=== PATIENT | male | born 1960 | race Caucasian/White ===

== ENCOUNTER 2018-03-05 07:28 | Emergency (ER) | payer MEDICARE ==
[~2018-03-05] VITALS: Ht 182.8 cm; Wt 77.1 kg
[~2018-03-05 07:28] MED LIST: ASPIRIN81 M1 PO; AVELOX400 MG PO; BENADRYL ALLERG25 M5 PO; BENADRYL25 MG PO; CLARITIN10 MG PO; KENALOG0.1% TP; MEDROL DOSEPAK4 MG PO; PREDNICOT20 MG PO; VICODIN 5/500 505 MG PO; ZITHROMAX Z PA250 MG PO
[2018-03-05 07:34] VITALS: BP 159/100
[2018-03-05] MEDS ORDERED: TYLENOL325 M1 PO (09:27)
[2018-03-05] MEDS ORDERED: NAPROSYN500 MG PO (09:27)
== END 2018-03-05 09:15 | disposition home or self-care (01) ==
LOC: ED 07:28
DX: S62.626A Displaced fracture of middle phalanx of right little finger, initial encounter for closed fracture (principal); F17.200 Nicotine dependence, unspecified, uncomplicated; Z98.890 Other specified postprocedural states; Z79.82 Long term (current) use of aspirin; Z91.030 Bee allergy status; Z88.0 Allergy status to penicillin; W01.0XXA Fall on same level from slipping, tripping and stumbling without subsequent striking against object, initial encounter; Y93.89 Activity, other specified; Y92.89 Other specified places as the place of occurrence of the external cause; Y99.9 Unspecified external cause status

== ENCOUNTER 2018-05-19 22:04 | Inpatient (IN) | payer MEDICARE ==
[~2018-05-19] VITALS: Ht 182.9 cm; Wt 70.1 kg
--- NOTE | ~2018-05-19 | PR ---
[place], [place] PROGRESS NOTE NAME: ANATOLIY LUCAS JR UNIT #: [id number] ROOM: 402 DOCTOR: DINAH TODD MD BIRTHDATE: [birth year] DOS: 05/21/2018 CARDIOLOGY PROGRESS NOTE SUBJECTIVE: The patient was seen at his bedside today for followup of his brief episode of atrial fibrillation. He is a 57-year-old man who has no previous history of high blood pressure, diabetes, heart disease, vascular disease, or stroke. He had an episode of dysphagia at home with coughing, choking, dyspnea, etc. There is a question of possible aspiration. In the Emergency Room, he was noted to be tachycardic and review of strips available show that he had an irregular tachycardia suggesting a brief run of atrial fibrillation. Since he has been hospitalized, his rhythm has been perfectly regular and sinus. The patient is scheduled to have an endoscopy today to evaluate the cause of his dysphagia. He was complaining today because he is being kept n.p.o. He had no further cardiac complaints. PHYSICAL EXAMINATION: VITAL SIGNS: His pulse is 70 and regular, blood pressure is 128/78. He is afebrile. NECK: Supple. He has no jugular distention. Carotids are full. LUNGS: Respirations are unlabored. Chest is clear. HEART: Has a regular rhythm with a soft S4 gallop, but no S3. The PMI is not displaced. ABDOMEN: Benign. EXTREMITIES: Showed no edema. Peripheral pulses are easily palpated in the feet. I reviewed his monitor strips which showed sinus rhythm. IMPRESSION: 1. Episode of dysphagia with possible aspiration, accompanied by nausea, vomiting, dyspnea, etc. 2. Brief episode of atrial fibrillation while patient was experiencing nausea, vomiting, dyspnea, etc. 3. CHADS-VASc score equals zero consistent with low risk for stroke. PLAN: We will obtain an echocardiogram and continue low dose beta lakia along with aspirin therapy. No other cardiac workup is contemplated unless his echocardiogram is unusual. I thank the hospitalist physicians for asking our advice regarding his care. [place], [place] PROGRESS NOTE NAME: ANATOLIY LUCAS JR UNIT #: [id number] ROOM: 402 DOCTOR: DINAH TODD MD BIRTHDATE: [birth year] DINAH TODD MD CM:PNTRANS 8 [id number] DINAH TODD MD 05/21/18 1008 interface
--- NOTE | ~2018-05-19 | EKG ---
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
--- NOTE | ~2018-05-19 | CON ---
[place], [place] REPORT OF CONSULTATION NAME: ANATOLIY LUCAS JR UNIT #: [id number] ROOM: 402 DOCTOR: BENI KING,PADMA BIRTHDATE: [birth year] DOS: 05/21/2018 GASTROENDOSCOPIC REPORT HISTORY OF PRESENT ILLNESS: This is a 57-year-old patient who presented with chief complaint of choking on food and there has been a concern about esophageal pathology. I have been consulted in this regard. The patient also has history of allergies that has been noticed thus to seasonal allergy. He had a panel of blood work done. His lactic acid was normal. CBC: White blood cell was 9, H and H of 13 and 41. Chest x-ray was pulmonary hyperinflation, INR was 1.0. Comprehensive metabolic panel, GFR greater than 60. Electrolytes balanced, magnesium 2.8. Liver function test normal except alkaline phosphatase as 153, lipase normal. Urine culture was within normal limits. Basic metabolic panel remained normal. PAST MEDICAL HISTORY: Associated with dysphagia, supraventricular tachycardia, nicotine dependency. Past medical history also associated with COPD, pulmonary embolism. PAST SURGICAL HISTORY: Cholecystectomy. SOCIAL HISTORY: Smoker. Social alcohol consumer. FAMILY HISTORY: Diabetes, hypertension. ALLERGIES: PENICILLIN AND BEE STING. MEDICATIONS: List has been reviewed. The patient has been on naproxen b.i.d. as well as aspirin. REVIEW OF SYSTEMS: HEENT: Denies double vision, blurred vision. RESPIRATORY: Denies acute shortness of breath; however, chronically short of breath. CARDIOVASCULAR: Denies chest pain. DIGESTIVE SYSTEM: Dysphagia. PHYSICAL EXAMINATION: VITAL SIGNS: Stable. HEENT: Within normal limit. NECK: Supple. No thyromegaly, no cervical lymphadenopathy. HEART: Normal sinus rhythm, no gallop, no murmur. ABDOMEN: Soft. No hepato-organomegaly. Bowel sounds within normal limit. EXTREMITIES: No cyanosis, no pedal edema. NEUROLOGIC: Alert, oriented to time, place, person. IMPRESSION: History of supraventricular tachycardia, COPD, nicotine dependency, dysphagia. PLAN AND DISCUSSION: We are going to organize an EGD in search of etiology for [place], [place] REPORT OF CONSULTATION NAME: ANATOLIY LUCAS JR UNIT #: [id number] ROOM: 402 DOCTOR: BENI KING,PADMA BIRTHDATE: [birth year] dysphagia. PADMA BAZAN MD CM:CONSTR:REPORT OF CONSULTATION 1816 05/22/18 0105 interface
--- NOTE | ~2018-05-19 | EKG ---
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
--- NOTE | ~2018-05-19 | O ---
[place], [place] OPERATIVE NOTE NAME: [facility]AS JR [id number] UNIT #: [id number] ROOM: 402 DOCTOR: PADMA BAZAN MD BIRTHDATE: [birth year] DOS: 05/21/2018 GASTROENDOSCOPIC REPORT HISTORY OF PRESENT ILLNESS: A 57-year-old patient who presented with a chief complaint of dysphagia, choking on the food and I have been asked for assessment of the patient in this regard. The patient also has supraventricular tachycardia history. The patient with nicotine dependency, history of COPD, history of naproxen use. Today's procedure part of investigation is panendoscopy plus biopsy. PREMEDICATION: Propofol. SCOPE: Olympus forward-viewing gastroscope Q10 video. REPORT: After putting the patient in left lateral position and application of lubricant to the scope, the scope was introduced. Thereafter, under direct visualization, advanced through the length of esophagus without difficulty. Gastric pouch was entered. A small hiatal hernia about 2 cm was noticed. Gastritis noticed. Antral biopsy obtained. Duodenal patency assured. There was no ulceration, no lesion in the duodenum. Air was suctioned out. GI reflexion of the scope reveals cardia to be benign. The patient was extubated, tolerated the procedure well. IMPRESSION: Gastritis, which could be secondary to nonsteroidal anti-inflammatory periodically is taking as well as smoking, hiatal hernia, dysphagia that he felt could be related to the above. There is no obstruction. At the present time, the patient is going to be started on soft diet and tomorrow regular diet and followed up as outpatient. Omeprazole 20 mg daily, would suffice management of the dyspepsia. PADMA BAZAN MD CM:OPRECORD:OPERATIVE NOTE [id number] PADMA BAZAN MD 05/21/18 184 interface
[~2018-05-19 22:04] MED LIST changes: +NAPROSYN500 MG PO; +TYLENOL325 M1 PO
[2018-05-19 22:12] VITALS: BP 142/88
[2018-05-19 22:57] VITALS: BP 140/68
[2018-05-19 23:06] LABS: BASO # 0.1 10*3/uL (0.0-0.1); EOS # 0.2 10*3/uL (0.0-0.4); EOS % 2.4 % (1.0-4.0); HEMATOCRIT 41.4 % (42.0-52.0); HEMOGLOBIN 13.6 g/dl (14.0-18.0); LYMPH # 1.9 10*3/uL (1.3-4.4); LYMPH % 20.7 % (27.0-41.0); MEAN CELL VOLUME 86.4 fl (80.0-94.0); MEAN CORPUSCULAR HGB 28.4 pg (27.0-31.0); MEAN CORPUSCULAR HGB CONC 32.9 g/dl (33.0-37.0); MEAN PLATELET VOLUME 10.1 fl (9.6-12.3); MONO % 11.5 % (3.0-9.0); NEUT # 5.8 10*3/uL (2.3-7.9); NEUT % 64.2 % (47.0-73.0); PLATELET COUNT AUTOMATED 294 10*3/uL (130-400); RED BLOOD COUNT 4.79 10*6/uL (4.50-5.90); RED CELL DISTRI WIDTH 13.9 % (0-14.5); WHITE BLOOD COUNT 9.1 10*3/uL (4.8-10.8)
[2018-05-19 23:23] LABS: ALBUMIN 2.9 gm/dl (3.1-4.5); ALKALINE PHOSPHATASE 153 U/L (45-117); BUN 18 mg/dl (7-24); CHLORIDE 110 mmol/L (98-107); CREATININE 0.92 mg/dL (0.70-1.30); LIPASE 102 U/L (73-393); POTASSIUM 3.6 mmol/L (3.5-5.1); SGOT/AST 12 IU/L (3-35); SGPT/ALT 18 U/L (12-78); SODIUM 141 mmol/L (136-145); TOTAL PROTEIN 5.9 gm/dL (6.4-8.2); TROPONIN I < 0.015 ng/ml (<0.045)
[2018-05-19 23:28] VITALS: BP 136/74
[2018-05-19 23:38] LABS: BILIRUBIN NEGATIVE (NEGATIVE); BLOOD 2+ (NEGATIVE); CLARITY CLEAR (CLEAR); COLOR YELLOW (YELLOW); GLUCOSE NEGATIVE (NEGATIVE); KETONE NEGATIVE (NEGATIVE); LEUKO ESTERASE NEGATIVE (NEGATIVE); NITRITE NEGATIVE (NEGATIVE); UROBILINOGEN 0.2 E.U./dl (0.2-1.0)
[2018-05-20] VITALS (8 sets, daily range): BP systolic 122–149; BP diastolic 72–92
[2018-05-20 05:53] LABS: BASO # 0.1 10*3/uL (0.0-0.1); BASO % 1.3 % (0.0-1.0); EOS # 0.2 10*3/uL (0.0-0.4); EOS % 2.4 % (1.0-4.0); HEMATOCRIT 40.3 % (42.0-52.0); HEMOGLOBIN 13.2 g/dl (14.0-18.0); LYMPH # 2.3 10*3/uL (1.3-4.4); MEAN CELL VOLUME 86.5 fl (80.0-94.0); MEAN CORPUSCULAR HGB 28.3 pg (27.0-31.0); MEAN CORPUSCULAR HGB CONC 32.8 g/dl (33.0-37.0); MEAN PLATELET VOLUME 10.6 fl (9.6-12.3); MONO # 0.8 10*3/uL (0.1-1.0); MONO % 11.2 % (3.0-9.0); NEUT # 4.1 10*3/uL (2.3-7.9); NEUT % 54.8 % (47.0-73.0); PLATELET COUNT AUTOMATED 276 10*3/uL (130-400); RED BLOOD COUNT 4.66 10*6/uL (4.50-5.90); RED CELL DISTRI WIDTH 14.1 % (0-14.5); WHITE BLOOD COUNT 7.5 10*3/uL (4.8-10.8)
[2018-05-20 05:59] LABS: BUN 15 mg/dl (7-24); CHLORIDE 111 mmol/L (98-107); CHOLESTEROL 179 mg/dL (<200); CREATININE 0.84 mg/dL (0.70-1.30); FREE T4 1.07 ng/dl (0.76-1.46); HDL CHOLESTEROL 42 mg/dl (40-60); LDL CHOLESTEROL 125 mg/dL (9-159); PHOSPHOROUS 3.1 mg/dL (2.5-4.9); SODIUM 143 mmol/L (136-145); TRIGLYCERIDES 62 mg/dl (<150); VLDL CHOLESTEROL 12 mg/dL (6-40)
[2018-05-20 06:05] LABS: THYROID STIM HORMONE (HS) 0.859 uIU/ml (0.358-4.75)
[2018-05-21] VITALS (9 sets, daily range): BP systolic 101–157; BP diastolic 59–91
[2018-05-21 06:53] LABS: BASO # 0.1 10*3/uL (0.0-0.1); BASO % 1.3 % (0.0-1.0); EOS # 0.3 10*3/uL (0.0-0.4); EOS % 3.4 % (1.0-4.0); HEMATOCRIT 43.3 % (42.0-52.0); HEMOGLOBIN 14.2 g/dl (14.0-18.0); LYMPH # 2.1 10*3/uL (1.3-4.4); MEAN CELL VOLUME 85.6 fl (80.0-94.0); MEAN CORPUSCULAR HGB 28.1 pg (27.0-31.0); MEAN CORPUSCULAR HGB CONC 32.8 g/dl (33.0-37.0); MEAN PLATELET VOLUME 10.7 fl (9.6-12.3); MONO % 11.8 % (3.0-9.0); NEUT # 4.9 10*3/uL (2.3-7.9); NEUT % 58.4 % (47.0-73.0); PLATELET COUNT AUTOMATED 311 10*3/uL (130-400); RED BLOOD COUNT 5.06 10*6/uL (4.50-5.90); RED CELL DISTRI WIDTH 14.2 % (0-14.5); WHITE BLOOD COUNT 8.4 10*3/uL (4.8-10.8)
[2018-05-21 07:06] LABS: BUN 10 mg/dl (7-24); CHLORIDE 106 mmol/L (98-107); CREATININE 0.82 mg/dL (0.70-1.30); POTASSIUM 4.2 mmol/L (3.5-5.1); SODIUM 140 mmol/L (136-145)
[2018-05-22] VITALS: BP 135/73
[2018-05-22 08:00] VITALS: BP 124/80
[2018-05-22] MEDS ORDERED: METOPROLOL SUCC25 M2 PO (09:04)
[2018-05-22] MEDS ORDERED: OMEPRAZOLE20 M2 PO (09:04)
== END 2018-05-22 09:47 | disposition home or self-care (01) | DRG 392 ==
LOC: ED 22:04 → 4E 05-20 01:25 → EDHOLD 05-20 01:25 → 4E 05-20 01:33
PROVIDERS: Emergency Medicine Emergency Medical Services; Internal Medicine
PROC: 0DB68ZX Excision of Stomach, Via Natural or Artificial Opening Endoscopic, Diagnostic (ICD-10-PCS; principal; 2018-05-21)
DX: K29.70 Gastritis, unspecified, without bleeding (principal); E44.0 Moderate protein-calorie malnutrition; I47.1 Supraventricular tachycardia; I08.1 Rheumatic disorders of both mitral and tricuspid valves; I48.0 Paroxysmal atrial fibrillation; R13.10 Dysphagia, unspecified; K44.9 Diaphragmatic hernia without obstruction or gangrene; Z68.20 Body mass index [BMI] 20.0-20.9, adult; D50.9 Iron deficiency anemia, unspecified; J44.9 Chronic obstructive pulmonary disease, unspecified; E55.9 Vitamin D deficiency, unspecified; I45.10 Unspecified right bundle-branch block; Z72.0 Tobacco use; Z71.6 Tobacco abuse counseling; Z86.718 Personal history of other venous thrombosis and embolism; Z86.711 Personal history of pulmonary embolism; Z88.0 Allergy status to penicillin; Z91.030 Bee allergy status; Z79.899 Other long term (current) drug therapy; Z79.82 Long term (current) use of aspirin; Z90.49 Acquired absence of other specified parts of digestive tract; Z80.8 Family history of malignant neoplasm of other organs or systems; Z82.49 Family history of ischemic heart disease and other diseases of the circulatory system; Z83.3 Family history of diabetes mellitus

== ENCOUNTER → 2018-06-27 | Outpatient (CLI) | payer MEDICARE ==
[~2018-06-27] MED LIST changes: +METOPROLOL SUCC25 M2 PO; +OMEPRAZOLE20 M2 PO
[2018-06-27 16:11] LABS: BASO # 0.1 10*3/uL (0.0-0.1); BASO % 0.9 % (0.0-1.0); EOS # 0.1 10*3/uL (0.0-0.4); EOS % 0.9 % (1.0-4.0); HEMATOCRIT 46.5 % (42.0-52.0); HEMOGLOBIN 15.4 g/dl (14.0-18.0); LYMPH # 2.6 10*3/uL (1.3-4.4); LYMPH % 21.6 % (27.0-41.0); MEAN CELL VOLUME 86.9 fl (80.0-94.0); MEAN CORPUSCULAR HGB 28.8 pg (27.0-31.0); MEAN CORPUSCULAR HGB CONC 33.1 g/dl (33.0-37.0); MEAN PLATELET VOLUME 9.5 fl (9.6-12.3); MONO # 1.2 10*3/uL (0.1-1.0); MONO % 9.8 % (3.0-9.0); NEUT # 7.8 10*3/uL (2.3-7.9); NEUT % 66.6 % (47.0-73.0); PLATELET COUNT AUTOMATED 319 10*3/uL (130-400); RED BLOOD COUNT 5.35 10*6/uL (4.50-5.90); RED CELL DISTRI WIDTH 14.1 % (0-14.5); WHITE BLOOD COUNT 11.8 10*3/uL (4.8-10.8)
[2018-06-27 16:25] LABS: ALBUMIN 3.8 gm/dl (3.1-4.5); ALKALINE PHOSPHATASE 150 U/L (45-117); BUN 16 mg/dl (7-24); CHLORIDE 109 mmol/L (98-107); CREATININE 0.98 mg/dL (0.70-1.30); POTASSIUM 4.6 mmol/L (3.5-5.1); SGOT/AST 29 IU/L (3-35); SGPT/ALT 28 U/L (12-78); SODIUM 140 mmol/L (136-145); TOTAL PROTEIN 7.1 gm/dL (6.4-8.2)
== END | disposition home or self-care (01) ==
LOC: US 15:52
PROVIDERS: Urology
DX: Z12.5 Encounter for screening for malignant neoplasm of prostate (principal); N28.89 Other specified disorders of kidney and ureter; K29.70 Gastritis, unspecified, without bleeding

== ENCOUNTER 2019-05-19 06:37 | Emergency (ER) | payer OTHER ==
[~2019-05-19] VITALS: Wt 66.7 kg
[2019-05-19 06:37] VITALS: BP 152/97
[2019-05-19] MEDS ORDERED: PREDNISONE20 M1 PO (06:59)
[2019-05-19] MEDS ORDERED: ATARAX,VISTARIL50 MG PO (06:59)
== END 2019-05-19 07:14 | disposition home or self-care (01) ==
LOC: ED 06:37
DX: L23.7 Allergic contact dermatitis due to plants, except food (principal); F17.200 Nicotine dependence, unspecified, uncomplicated; Z88.0 Allergy status to penicillin; Z91.030 Bee allergy status; Z79.82 Long term (current) use of aspirin

== ENCOUNTER 2020-03-28 00:19 | Emergency (ER) | payer OTHER ==
[~2020-03-28] VITALS: Ht 182.8 cm; Wt 77.1 kg
[~2020-03-28 00:19] MED LIST changes: +ATARAX,VISTARIL50 MG PO; +PREDNISONE20 M1 PO
[2020-03-28 01:52] LABS: BASO # 0.1 10*3/uL (0.0-0.1); BASO % 1.1 % (0.0-1.0); EOS # 0.4 10*3/uL (0.0-0.4); EOS % 5.5 % (1.0-4.0); HEMATOCRIT 42.3 % (42.0-52.0); LYMPH # 2.2 10*3/uL (1.3-4.4); LYMPH % 27.7 % (27.0-41.0); MEAN CORPUSCULAR HGB 28.9 pg (27.0-31.0); MEAN CORPUSCULAR HGB CONC 33.6 g/dl (33.0-37.0); MEAN PLATELET VOLUME 9.9 fl (9.6-12.3); MONO # 1.2 10*3/uL (0.1-1.0); MONO % 14.7 % (3.0-9.0); NEUT # 4.1 10*3/uL (2.3-7.9); NEUT % 50.8 % (47.0-73.0); PLATELET COUNT AUTOMATED 347 10*3/uL (130-400); RED BLOOD COUNT 4.92 10*6/uL (4.50-5.90)
[2020-03-28 02:07] LABS: ALBUMIN 3.1 gm/dl (3.1-4.5); ALKALINE PHOSPHATASE 151 U/L (45-117); BUN 15 mg/dl (7-24); CHLORIDE 106 mmol/L (98-107); CREATININE 0.87 mg/dL (0.70-1.30); SGOT/AST 19 IU/L (3-35); SGPT/ALT 19 U/L (12-78); SODIUM 139 mmol/L (136-145); TOTAL PROTEIN 6.2 gm/dL (6.4-8.2)
[2020-03-28 03:51] VITALS: BP 147/99
[2020-03-28] MEDS ORDERED: DOXYCYCLINE100 MG PO (05:28)
[2020-03-28] MEDS ORDERED: CLARITIN10 MG PO ×2 (05:28→05:40)
[2020-03-28] MEDS ORDERED: PROVENTIL HFA6.7 GM INH ×2 (05:28→05:40)
[2020-03-28] MEDS ORDERED: DOXYCYCLINE100 M3 PO (05:40)
== END 2020-03-28 05:46 | disposition home or self-care (01) ==
LOC: ED 00:19
PROVIDERS: Emergency Medicine
DX: J40 Bronchitis, not specified as acute or chronic (principal); J32.9 Chronic sinusitis, unspecified; J44.9 Chronic obstructive pulmonary disease, unspecified; F17.200 Nicotine dependence, unspecified, uncomplicated; Z88.0 Allergy status to penicillin; Z91.030 Bee allergy status; Z79.82 Long term (current) use of aspirin; Z86.718 Personal history of other venous thrombosis and embolism

== ENCOUNTER → 2020-04-08 | Outpatient (CLI) | payer OTHER ==
[~2020-04-08] MED LIST changes: +DOXYCYCLINE100 M3 PO; +DOXYCYCLINE100 MG PO; +PROVENTIL HFA6.7 GM INH
== END | disposition home or self-care (01) ==
LOC: RAD 07:59
DX: R06.02 Shortness of breath (principal)

== ENCOUNTER 2020-04-28 03:59 | Observation (INO) | payer OTHER ==
[~2020-04-28] VITALS: Ht 182.9 cm; Wt 71.3 kg
[2020-04-28] VITALS (10 sets, daily range): BP systolic 120–147; BP diastolic 79–95
[2020-04-28 04:22] LABS: HEMATOCRIT 44.6 % (42.0-52.0); MEAN CELL VOLUME 83.8 fl (80.0-94.0); MEAN CORPUSCULAR HGB 28.6 pg (27.0-31.0); MEAN CORPUSCULAR HGB CONC 34.1 g/dl (33.0-37.0); MEAN PLATELET VOLUME 9.5 fl (9.6-12.3); PLATELET COUNT AUTOMATED 386 10*3/uL (130-400); RED BLOOD COUNT 5.32 10*6/uL (4.50-5.90); RED CELL DISTRI WIDTH 13.7 % (0-14.5)
[2020-04-28 04:39] LABS: ALBUMIN 3.5 gm/dl (3.1-4.5); ALKALINE PHOSPHATASE 193 U/L (45-117); BUN 17 mg/dl (7-24); CHLORIDE 107 mmol/L (98-107); CREATININE 0.95 mg/dL (0.70-1.30); POTASSIUM 3.6 mmol/L (3.5-5.1); SGOT/AST 21 IU/L (3-35); SGPT/ALT 32 U/L (12-78); SODIUM 139 mmol/L (136-145); TOTAL PROTEIN 7.3 gm/dL (6.4-8.2)
[2020-04-28 04:46] LABS: BURR CELLS MANY; PLATELET SUFFICIENCY NORMAL (NORMAL); TOTAL CELLS COUNTED 100 #CELLS
[2020-04-28] MEDS ORDERED: LIPITOR40 MG PO (08:17)
[2020-04-28] MEDS ORDERED: VITAMIN D325 MCG PO (08:17)
[2020-04-28] MEDS ORDERED: BREO ELLIPTA 21 EACH INH (08:18)
[2020-04-29] VITALS: BP 141/76
[2020-04-29 01:42] VITALS: BP 141/84
[2020-04-29 07:01] LABS: BASO # 0.1 10*3/uL (0.0-0.1); BASO % 0.9 % (0.0-1.0); EOS # 0.2 10*3/uL (0.0-0.4); EOS % 2.4 % (1.0-4.0); HEMATOCRIT 40.4 % (42.0-52.0); LYMPH # 2.3 10*3/uL (1.3-4.4); LYMPH % 24.7 % (27.0-41.0); MEAN CELL VOLUME 86.7 fl (80.0-94.0); MEAN CORPUSCULAR HGB 28.1 pg (27.0-31.0); MEAN CORPUSCULAR HGB CONC 32.4 g/dl (33.0-37.0); MEAN PLATELET VOLUME 9.8 fl (9.6-12.3); MONO # 1.1 10*3/uL (0.1-1.0); MONO % 12.2 % (3.0-9.0); NEUT # 5.4 10*3/uL (2.3-7.9); NEUT % 59.6 % (47.0-73.0); PLATELET COUNT AUTOMATED 311 10*3/uL (130-400); RED BLOOD COUNT 4.66 10*6/uL (4.50-5.90); RED CELL DISTRI WIDTH 14.3 % (0-14.5); WHITE BLOOD COUNT 9.1 10*3/uL (4.8-10.8)
[2020-04-29 07:08] LABS: ACT PARTIAL THROMBO TIME 24.9 SECONDS (20.0-32.1); INTERNATIONAL NORM RATIO 0.9 (2.0-3.5)
[2020-04-29 07:30] LABS: ALBUMIN 2.8 gm/dl (3.1-4.5); ALKALINE PHOSPHATASE 156 U/L (45-117); BUN 14 mg/dl (7-24); CHLORIDE 111 mmol/L (98-107); CHOLESTEROL 134 mg/dL (<200); CREATININE 0.82 mg/dL (0.70-1.30); FREE T4 0.99 ng/dl (0.76-1.46); HDL CHOLESTEROL 53 mg/dl (40-60); LDL CHOLESTEROL 70 mg/dL (9-159); SGOT/AST 18 IU/L (3-35); SGPT/ALT 24 U/L (12-78); TOTAL PROTEIN 5.9 gm/dL (6.4-8.2); TRIGLYCERIDES 57 mg/dl (<150); VLDL CHOLESTEROL 11 mg/dL (6-40)
[2020-04-29 07:40] LABS: SODIUM 141 mmol/L (136-145)
[2020-04-29 07:43] LABS: POTASSIUM 4.6 mmol/L (3.5-5.1)
[2020-04-29 07:56] LABS: VITAMIN D, 25-HYDROXY 35.7 ng/mL (30-100)
[2020-04-29 08:00] VITALS: BP 140/74
[2020-04-29] MEDS ORDERED: METOPROLOL SUCC50 M1 PO (10:56)
[2020-04-29] MEDS ORDERED: ASPIRIN ADULT L81 M2 PO (10:56)
[2020-04-29 12:00] VITALS: BP 143/80
== END 2020-04-29 12:35 | disposition home or self-care (01) ==
LOC: ED 03:59 → 5E 06:35 → EDHOLD 06:35 → 5E 06:35
PROVIDERS: Emergency Medicine; Internal Medicine; ADMIT Student in an Organized Health Care Education/Training Program
DX: I48.91 Unspecified atrial fibrillation (principal); R74.8 Abnormal levels of other serum enzymes; R73.9 Hyperglycemia, unspecified; R11.2 Nausea with vomiting, unspecified; R06.02 Shortness of breath; J44.9 Chronic obstructive pulmonary disease, unspecified; E78.00 Pure hypercholesterolemia, unspecified; R13.10 Dysphagia, unspecified; D72.829 Elevated white blood cell count, unspecified; E55.9 Vitamin D deficiency, unspecified; F17.210 Nicotine dependence, cigarettes, uncomplicated

== ENCOUNTER 2020-10-31 13:39 | Emergency (ER) | payer OTHER ==
[~2020-10-31] VITALS: Ht 182.8 cm; Wt 71.2 kg
[~2020-10-31 13:39] MED LIST changes: +ASPIRIN ADULT L81 M2 PO; +BREO ELLIPTA 21 EACH INH; +LIPITOR40 MG PO; +METOPROLOL SUCC50 M1 PO; +VITAMIN D325 MCG PO
[2020-10-31 14:25] LABS: BASO # 0.1 10*3/uL (0.0-0.1); BASO % 0.7 % (0.0-1.0); EOS % 0.2 % (1.0-4.0); HEMATOCRIT 45.1 % (42.0-52.0); LYMPH # 1.2 10*3/uL (1.3-4.4); LYMPH % 11.3 % (27.0-41.0); MEAN CELL VOLUME 84.3 fl (80.0-94.0); MEAN CORPUSCULAR HGB 26.5 pg (27.0-31.0); MEAN CORPUSCULAR HGB CONC 31.5 g/dl (33.0-37.0); MEAN PLATELET VOLUME 9.7 fl (9.6-12.3); NEUT # 8.3 10*3/uL (2.3-7.9); NEUT % 78.5 % (47.0-73.0); PLATELET COUNT AUTOMATED 323 10*3/uL (130-400); RED BLOOD COUNT 5.35 10*6/uL (4.50-5.90); WHITE BLOOD COUNT 10.6 10*3/uL (4.8-10.8)
[2020-10-31 14:49] LABS: ALBUMIN 3.3 gm/dl (3.1-4.5); ALKALINE PHOSPHATASE 200 U/L (45-117); BUN 20 mg/dl (7-24); CHLORIDE 105 mmol/L (98-107); CREATININE 1.02 mg/dL (0.70-1.30); POTASSIUM 4.3 mmol/L (3.5-5.1); SGOT/AST 17 IU/L (3-35); SGPT/ALT 28 U/L (12-78); SODIUM 136 mmol/L (136-145); TOTAL PROTEIN 6.6 gm/dL (6.4-8.2); TROPONIN I 0.016 ng/ml (<0.045)
[2020-10-31 15:21] VITALS: BP 125/81
== END 2020-10-31 15:53 | disposition home or self-care (01) ==
LOC: ED 13:39
PROVIDERS: Nurse Practitioner Family
DX: F41.9 Anxiety disorder, unspecified (principal); Z91.030 Bee allergy status; Z88.0 Allergy status to penicillin; Z79.899 Other long term (current) drug therapy; Z87.891 Personal history of nicotine dependence

== ENCOUNTER → 2021-06-22 | Outpatient (CLI) | payer OTHER ==
[~2021-06-22] MED LIST changes: +VITAMIN D3250 MC1 PO
== END | disposition home or self-care (01) ==
LOC: US 00:33
PROVIDERS: ATTEND Nurse Practitioner Family
DX: L72.8 Other follicular cysts of the skin and subcutaneous tissue (principal); R60.9 Edema, unspecified; M46.1 Sacroiliitis, not elsewhere classified

== ENCOUNTER → 2022-03-22 | Outpatient (CLI) | payer OTHER | LOC: RAD 10:19 | PROVIDERS: ATTEND Internal Medicine | DX: Z01.818 Encounter for other preprocedural examination (principal); J43.9 Emphysema, unspecified; R91.8 Other nonspecific abnormal finding of lung field ==

== ENCOUNTER → 2022-04-20 | Outpatient (CLI) | payer OTHER ==
[2022-04-20 10:55] LABS: BASO # 0.1 10*3/uL (0.0-0.1); BASO % 0.8 % (0.0-1.0); EOS # 0.1 10*3/uL (0.0-0.4); EOS % 1.3 % (1.0-4.0); HEMATOCRIT 46.2 % (42.0-52.0); LYMPH # 1.6 10*3/uL (1.3-4.4); LYMPH % 18.3 % (27.0-41.0); MEAN CELL VOLUME 88.7 fl (80.0-94.0); MEAN CORPUSCULAR HGB 29.4 pg (27.0-31.0); MEAN CORPUSCULAR HGB CONC 33.1 g/dl (33.0-37.0); MEAN PLATELET VOLUME 10.2 fl (9.6-12.3); MONO # 0.9 10*3/uL (0.1-1.0); NEUT # 5.9 10*3/uL (2.3-7.9); NEUT % 69.2 % (47.0-73.0); PLATELET COUNT AUTOMATED 351 10*3/uL (130-400); RED BLOOD COUNT 5.21 10*6/uL (4.50-5.90); RED CELL DISTRI WIDTH 14.4 % (0-14.5); WHITE BLOOD COUNT 8.6 10*3/uL (4.8-10.8)
[2022-04-20 11:02] LABS: BILIRUBIN Negative (Negative); BLOOD 2+ (Negative); CLARITY Clear (Clear); COLOR Yellow (Yellow); GLUCOSE Negative (Negative); KETONE Negative (Negative); LEUKO ESTERASE Negative (Negative); NITRITE Negative (Negative); SPECIFIC GRAVITY 1.015 (1.001-1.030)
[2022-04-20 11:11] LABS: ALKALINE PHOSPHATASE 176 U/L (45-117); BUN 14 mg/dl (7-24); CHLORIDE 108 mmol/L (98-107); CREATININE 0.85 mg/dL (0.70-1.30); SGOT/AST 19 IU/L (3-35); SGPT/ALT 21 U/L (12-78); SODIUM 142 mmol/L (136-145); TOTAL PROTEIN 6.5 gm/dL (6.4-8.2)
[2022-04-20 11:31] LABS: WBC 0-2 wbc/hpf (0-5)
[2022-04-20 11:32] LABS: BACTERIA 1+; YEAST TRACE
== END | disposition home or self-care (01) ==
LOC: LAB 09:45 → CT 10:00
PROVIDERS: ATTEND Urology
DX: D40.0 Neoplasm of uncertain behavior of prostate (principal); N43.3 Hydrocele, unspecified; N20.0 Calculus of kidney; Z12.5 Encounter for screening for malignant neoplasm of prostate; K57.30 Diverticulosis of large intestine without perforation or abscess without bleeding

== ENCOUNTER 2023-01-09 09:20 | Emergency (ER) | payer OTHER ==
[~2023-01-09] VITALS: Ht 182.8 cm; Wt 68.5 kg
[2023-01-09 09:44] VITALS: BP 128/84
[2023-01-09 10:33] LABS: MEAN CELL VOLUME 85.6 fl (80.0-94.0); MEAN CORPUSCULAR HGB 28.6 pg (27.0-31.0); MEAN CORPUSCULAR HGB CONC 33.4 g/dl (33.0-37.0); MEAN PLATELET VOLUME 9.8 fl (9.6-12.3); PLATELET COUNT AUTOMATED 281 10*3/uL (130-400); RED BLOOD COUNT 5.84 10*6/uL (4.50-5.90); RED CELL DISTRI WIDTH 14.6 % (0-14.5); WHITE BLOOD COUNT 8.6 10*3/uL (4.8-10.8)
[2023-01-09 10:37] LABS: MANUAL DIFF REFLEX YES
[2023-01-09 10:47] LABS: ALKALINE PHOSPHATASE 193 U/L (46-116); BUN 16 mg/dl (9-23); CHLORIDE 107 mmol/L (98-107); CPK 210 U/L (34-171); POTASSIUM 4.9 mmol/L (3.4-5.1); SGPT/ALT 37 U/L (10-49); TOTAL PROTEIN 6.6 gm/dL (6.0-8.0)
[2023-01-09 11:07] LABS: BURR CELLS FEW; OVALOCYTES FEW; PLATELET SUFFICIENCY NORMAL (NORMAL); POLYCHROMASIA SLIGHT; TOTAL CELLS COUNTED 100 #CELLS; TOXIC GRANULATION SLIGHT; VACUOLATION OF NEUTROPHILS SLIGHT
[2023-01-09] MEDS ORDERED: CYCLOBENZAPRINE10 MG PO (11:08)
== END 2023-01-09 11:19 | disposition home or self-care (01) ==
LOC: ED 09:20
PROVIDERS: Internal Medicine
DX: R53.1 Weakness (principal); E78.00 Pure hypercholesterolemia, unspecified; Z91.030 Bee allergy status; Z88.0 Allergy status to penicillin; Z90.49 Acquired absence of other specified parts of digestive tract; Z90.89 Acquired absence of other organs; F17.200 Nicotine dependence, unspecified, uncomplicated

== ENCOUNTER → 2023-03-09 | Outpatient (CLI) | payer OTHER ==
[~2023-03-09] MED LIST changes: +CYCLOBENZAPRINE10 MG PO
[2023-03-09 11:04] LABS: BASO # 0.1 10*3/uL (0.0-0.1); BASO % 1.4 % (0.0-1.0); EOS # 0.3 10*3/uL (0.0-0.4); EOS % 3.3 % (1.0-4.0); HEMATOCRIT 48.5 % (42.0-52.0); LYMPH # 1.9 10*3/uL (1.3-4.4); MEAN CELL VOLUME 86.6 fl (80.0-94.0); MEAN CORPUSCULAR HGB 28.4 pg (27.0-31.0); MEAN CORPUSCULAR HGB CONC 32.8 g/dl (33.0-37.0); MEAN PLATELET VOLUME 10.1 fl (9.6-12.3); MONO % 11.3 % (3.0-9.0); NEUT # 5.2 10*3/uL (2.3-7.9); NEUT % 61.8 % (47.0-73.0); PLATELET COUNT AUTOMATED 337 10*3/uL (130-400); RED CELL DISTRI WIDTH 14.3 % (0-14.5); WHITE BLOOD COUNT 8.4 10*3/uL (4.8-10.8)
[2023-03-09 11:15] LABS: ACT PARTIAL THROMBO TIME 26.6 SECONDS (20.0-32.1)
[2023-03-09 11:28] LABS: ALKALINE PHOSPHATASE 159 U/L (46-116); BUN 13 mg/dl (9-23); CHLORIDE 102 mmol/L (98-107); POTASSIUM 4.1 mmol/L (3.4-5.1); SGPT/ALT 10 U/L (10-49); TOTAL PROTEIN 6.8 gm/dL (6.0-8.0)
== END | disposition home or self-care (01) ==
LOC: LAB 09:56
PROVIDERS: ATTEND Urology
DX: Z01.818 Encounter for other preprocedural examination (principal); Z12.5 Encounter for screening for malignant neoplasm of prostate; I25.10 Atherosclerotic heart disease of native coronary artery without angina pectoris; J44.9 Chronic obstructive pulmonary disease, unspecified; I44.4 Left anterior fascicular block

== ENCOUNTER → 2023-03-29 | Outpatient (CLI) | payer OTHER | END | disposition home or self-care (01) | LOC: US 13:53 | PROVIDERS: ATTEND Urology | DX: I82.401 Acute embolism and thrombosis of unspecified deep veins of right lower extremity (principal); M79.604 Pain in right leg ==

== ENCOUNTER 2024-07-28 02:30 | Emergency (ER) | payer OTHER ==
[2024-07-28 02:53] LABS: BASO # 0.1 10*3/uL (0.0-0.1); BASO % 0.8 % (0.0-1.0); EOS # 0.4 10*3/uL (0.0-0.4); EOS % 4.2 % (1.0-4.0); HEMATOCRIT 45.6 % (42.0-52.0); LYMPH % 19.8 % (27.0-41.0); MEAN CELL VOLUME 86.2 fl (80.0-94.0); MEAN CORPUSCULAR HGB CONC 32.5 g/dl (33.0-37.0); MEAN PLATELET VOLUME 9.6 fl (9.6-12.3); MONO # 1.2 10*3/uL (0.1-1.0); NEUT # 6.3 10*3/uL (2.3-7.9); NEUT % 62.9 % (47.0-73.0); PLATELET COUNT AUTOMATED 362 10*3/uL (130-400); RED BLOOD COUNT 5.29 10*6/uL (4.50-5.90); RED CELL DISTRI WIDTH 15.5 % (0-14.5); WHITE BLOOD COUNT 10.1 10*3/uL (4.8-10.8)
[2024-07-28 03:04] LABS: BILIRUBIN Negative (Negative); BLOOD 2+ (Negative); CLARITY Clear (Clear); COLOR Yellow (Yellow); GLUCOSE 3+ (Negative); KETONE Negative (Negative); LEUKO ESTERASE Negative (Negative); NITRITE Negative (Negative); PH 6.5 (4.5-8.0)
[2024-07-28 03:06] VITALS: BP 142/84
[2024-07-28 03:10] LABS: BACTERIA TRACE; RBC 21-30 rbc/hpf (0-2); WBC 0-2 wbc/hpf (0-5)
[2024-07-28 03:12] LABS: BUN 14 mg/dl (9-23); CHLORIDE 107 mmol/L (98-107); LIPASE 33 U/L (12-53); POTASSIUM 4.4 mmol/L (3.4-5.1)
[2024-07-28] MEDS ORDERED: Lidocaine Hydrochloride 15 ML UDC PO STA (05:06)
[2024-07-28] MEDS ORDERED: Dicyclomine Hydrochloride 20 MG/10 ML OSYR PO STA (05:06)
[2024-07-28] MEDS ORDERED: MG-AL HYDROXIDE/SIMETICONE 30 ML UDC PO STA (05:06)
== END 2024-07-28 05:58 | disposition home or self-care (01) ==
LOC: ED 02:30
PROVIDERS: Internal Medicine
DX: K21.9 Gastro-esophageal reflux disease without esophagitis (principal); R07.89 Other chest pain; E78.00 Pure hypercholesterolemia, unspecified; I25.2 Old myocardial infarction; R11.0 Nausea; F17.200 Nicotine dependence, unspecified, uncomplicated; Z53.29 Procedure and treatment not carried out because of patient's decision for other reasons; Z91.030 Bee allergy status; Z88.0 Allergy status to penicillin; Z90.49 Acquired absence of other specified parts of digestive tract; Z90.89 Acquired absence of other organs; Z98.890 Other specified postprocedural states; Z79.899 Other long term (current) drug therapy

== ENCOUNTER 2024-07-30 20:53 | Emergency (ER) | payer OTHER ==
[~2024-07-30] VITALS: Ht 172.7 cm; Wt 77.1 kg
[2024-07-30] MEDS ORDERED: Ondansetron Hydrochloride 4 MG/2 ML VIAL IV ONE (21:00)
[2024-07-30 21:11] LABS: BASO # 0.1 10*3/uL (0.0-0.1); BASO % 0.7 % (0.0-1.0); EOS # 0.3 10*3/uL (0.0-0.4); EOS % 2.5 % (1.0-4.0); LYMPH # 2.1 10*3/uL (1.3-4.4); LYMPH % 19.8 % (27.0-41.0); MEAN CELL VOLUME 85.6 fl (80.0-94.0); MEAN CORPUSCULAR HGB 28.2 pg (27.0-31.0); MEAN CORPUSCULAR HGB CONC 32.9 g/dl (33.0-37.0); MEAN PLATELET VOLUME 9.8 fl (9.6-12.3); MONO # 0.6 10*3/uL (0.1-1.0); MONO % 5.4 % (3.0-9.0); NEUT # 7.5 10*3/uL (2.3-7.9); NEUT % 71.3 % (47.0-73.0); PLATELET COUNT AUTOMATED 343 10*3/uL (130-400); RED BLOOD COUNT 5.61 10*6/uL (4.50-5.90); RED CELL DISTRI WIDTH 15.4 % (0-14.5); WHITE BLOOD COUNT 10.5 10*3/uL (4.8-10.8)
[2024-07-30 21:32] LABS: ALKALINE PHOSPHATASE 264 U/L (46-116); BUN 15 mg/dl (9-23); CHLORIDE 105 mmol/L (98-107); SGPT/ALT 15 U/L (5-49); TOTAL PROTEIN 7.2 gm/dL (6.0-8.0)
[2024-07-31] MEDS ORDERED: Pantoprazole Sodium 40 MG VIAL IV ONE (02:05)
[2024-07-31] MEDS ORDERED: Ondansetron4 MG PO (02:19)
[2024-07-31 02:29] VITALS: BP 110/66
[2024-07-31] MEDS ORDERED: Water, Sterile 10 ML VIAL ONE (02:43)
== END 2024-07-31 02:40 | disposition home or self-care (01) ==
LOC: ED 20:53
PROVIDERS: Internal Medicine
DX: B34.9 Viral infection, unspecified (principal); Z20.822 Contact with and (suspected) exposure to COVID-19; R11.2 Nausea with vomiting, unspecified; R42 Dizziness and giddiness; R06.02 Shortness of breath; N18.31 Chronic kidney disease, stage 3a; I48.91 Unspecified atrial fibrillation; I25.2 Old myocardial infarction; E78.00 Pure hypercholesterolemia, unspecified; F17.200 Nicotine dependence, unspecified, uncomplicated; Z88.0 Allergy status to penicillin; Z91.030 Bee allergy status; Z90.49 Acquired absence of other specified parts of digestive tract; Z90.89 Acquired absence of other organs; Z98.890 Other specified postprocedural states